=== PATIENT | female | born 1990 | race Caucasian/White ===

== ENCOUNTER 2018-07-16 05:48 | Day surgery (SDC) | payer BC ==
[~2018-07-16] VITALS: Ht 320 cm; Wt 89.4 kg
[~2018-07-16 05:48] MED LIST: KEFLEX500 MG PO; LISINOPRIL5 MG PO; PROTONIX40 MG PO; TESSALON PERLE100 MG PO
[2018-07-16 06:26] LABS: BASOPHILS 0.5 % (0-2); EOSINOPHILS 3.1 % (0-7); HEMATOCRIT 40.4 % (36.0-48.0); HEMOGLOBIN 13.9 g/dL (12-16); IMMATURE GRANULOCYTES 0.1 % (0-5); LYMPHOCYTES 20.6 % (15-50); MCH 30.8 pg (26.0-34.0); MCHC 34.4 g/dL (31.0-37.0); MCV 89.4 fL (80.0-100.0); MONOCYTES 7.8 % (2-11); NEUTROPHILS 67.9 % (40-80); PLATELET COUNT 345 10x3/uL (130-400); RBC 4.52 10x6/uL (4.00-5.40); RDW 12.7 % (11.5-14.5); WBC 9.7 10x3/uL (4.8-10.8)
[2018-07-16 06:34] LABS: CALC OSMOLALITY 276 mosm/kg (275-300); CALCIUM 9.4 mg/dL (8.5-10.1); CARBON DIOXIDE 25.8 mmol/L (21.0-32.0); CHLORIDE - SERUM 103 mmol/L (98-107); CREATININE - SERUM 0.9 mg/dL (0.6-1.3); GLUCOSE 99 mg/dL (74-106); POTASSIUM - SERUM 4.5 mmol/L (3.5-5.1); SODIUM 138 mmol/L (136-145); UREA NITROGEN 16 mg/dL (7-18); eGFR NON AFRICAN AMERICAN 78 mL/min (90-120)
[2018-07-16 06:39] LABS: HCG URINE NEGATIVE (NEGATIVE)
[2018-07-16 06:51] VITALS: BP 132/76; Ht 320 cm; Wt 89.4 kg
[2018-07-16] MEDS ORDERED: HYDROCODON-ACE1 EA10 PO (08:45)
--- NOTE | 2018-07-16 10:01 | NUR ---
NORCO 10 GIVEN FOR PAIN 6:10
--- NOTE | 2018-07-16 10:50 | NUR ---
IV REMOVED AND PT VOIDED
--- NOTE | 2018-07-19 09:41 | OP ---
PATIENT NAME: MIREYA BROWN MEDICAL RECORD: [id number] :86 LOCATION:[facility] ADMISSION DATE: SURGEON: MATTIE BURKETT MD DATE OF OPERATION: 07/16/2018 PREOPERATIVE DIAGNOSES: 1. Gallstones. 2. Hypertension. POSTOPERATIVE DIAGNOSES: 1. Gallstones. 2. Hypertension. PROCEDURE: Laparoscopic cholecystectomy. SURGEON: Mattie Burkett MD REPORT OF PROCEDURE: The patient's abdomen was prepped and draped in sterile fashion. A cutdown was made on the superior aspect of the umbilicus, 0 Vicryls were placed in the fascia bilaterally and the fascia was incised with 15-blade. I then bluntly entered the peritoneal cavity and placed a 12-mm Sweetie port. Under direct visualization, a 5 mm trocar was placed in the epigastrium and 2 more 5-mm trocars were placed in the right subcostal region. The gallbladder was grasped and elevated. There were no inflammatory changes. The patient had some large gallstones present. The cystic artery and cystic duct were dissected free and these were clipped proximally and distally and ligated in standard fashion. The gallbladder was then taken off the liver bed using electrocautery and placed into the right upper quadrant. Any bleeding from the liver bed was then treated with electrocautery. At this point, the ports and insufflation were then removed and the gallbladder was taken out through the umbilicus. The umbilical fascia was closed with interrupted 0 Vicryls times 3. The wounds were irrigated out with normal saline and infused with 10 mL of 0.25% Marcaine with epinephrine. Skin incisions were all closed with subcutaneous 5-0 Monocryl and dressed appropriately. COMPLICATIONS: None. CONDITION: Stable. ANESTHESIA: General endotracheal and local. BLOOD LOSS: Minimal. 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
== END 2018-07-16 11:50 | disposition home or self-care (01) ==
LOC: D.OPS 05:48
PROVIDERS: ATTEND Surgery
DX: K80.10 Calculus of gallbladder with chronic cholecystitis without obstruction (principal); I10 Essential (primary) hypertension; Z01.812 Encounter for preprocedural laboratory examination